=== PATIENT | male | born 1985 | race Caucasian/White ===

== ENCOUNTER 2021-09-16 10:00 | Emergency (ER) | payer OTHER ==
[2021-09-16] MEDS ORDERED: Lidocaine 1% 5 ML VIAL INJECT ONE (10:45)
[2021-09-16] MEDS ORDERED: Diphtheria,Pertussis(Acell),Tetanus Vaccine 0.5 ML Syringe IM ONE (10:45)
== END 2021-09-16 11:37 | disposition home or self-care (01) ==
LOC: VM.ED 10:00
DX: S61.211A Laceration without foreign body of left index finger without damage to nail, initial encounter (principal); Z88.2 Allergy status to sulfonamides; Z88.1 Allergy status to other antibiotic agents; Z23 Encounter for immunization; W26.8XXA Contact with other sharp object(s), not elsewhere classified, initial encounter; Y99.0 Civilian activity done for income or pay
CPT/HCPCS: 12001; 73130-LT; 90471; 90715; 99283; 99283-25

== ENCOUNTER 2022-08-09 11:53 | Emergency (ER) | payer OTHER ==
[2022-08-09] MEDS: Acetaminophen 325 MG Tab PO ONE (12:06)
[2022-08-09 12:41] VITALS: BP 145/91; PULSE 84
== END 2022-08-09 12:15 | disposition home or self-care (01) ==
LOC: VM.ED 11:53
DX: S01.111A Laceration without foreign body of right eyelid and periocular area, initial encounter (principal); Z88.2 Allergy status to sulfonamides; Z88.1 Allergy status to other antibiotic agents; Z23 Encounter for immunization; W26.8XXA Contact with other sharp object(s), not elsewhere classified, initial encounter; Y99.0 Civilian activity done for income or pay
CPT/HCPCS: 12011; 99282; 99283; A9270-GY